=== PATIENT | female | born 1955 | race Caucasian/White ===

== ENCOUNTER 2018-02-01 05:57 | Emergency (ER) | payer SELFPAY ==
[~2018-02-01] VITALS: Ht 162.6 cm; Wt 38.6 kg
[~2018-02-01 05:57] MED LIST: HYDR-3062 PO; HYDR1TAB66 PO; LEVO500T69 PO; MELA1TAB17 PO; METH4TAB PO; NAPR-243 PO
--- OUTSIDE RECORDS SUMMARY | 2018-02-01 06:02 | XMS REPORT | Continuity of Care Document ---
Author Author [facility] Address Unknown Phone Unavailable Allergies Active Description Code Type Severity Reaction Onset Reported/Identified Relationship to Patient Clinical Status Yes No Known Drug Allergies [id number] Drug Allergy Unknown N/A 08/19/2011 Medications There is no data. 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 06/24/2011 MABEL DUNCAN APRN 716.90 UNSPECIFIED ARTHROPATHY SITE UNSPECIFIED 06/24/2011 MABEL DUNCAN APRN 783.21 LOSS OF WEIGHT 06/24/2011 MABEL DUNCAN APRN 716.90 UNSPECIFIED ARTHROPATHY SITE UNSPECIFIED 06/24/2011 MABEL DUNCAN APRN 783.21 LOSS OF WEIGHT 08/21/2011 MABEL DUNCAN APRN 486 PNEUMONIA 08/21/2011 MABEL DUNCAN APRN 486 PNEUMONIA 05/30/2013 JAZZ DO, ELLIOT K Ot 490 05/30/2013 JAZZ DO, ELLIOT K Ot 599.0 05/30/2013 JAZZ IRENE, ELLIOT K Ot 789.09 06/03/2013 MABEL DUNCAN APRN 466.0 BRONCHITIS, ACUTE 06/03/2013 MABEL DUNCAN APRN 466.0 BRONCHITIS, ACUTE 06/10/2013 MABEL DUNCAN APRN 735.0 HALLUX VALGUS (ACQUIRED) 06/10/2013 MABEL DUNCAN APRN 735.4 HAMMER TOE (ACQUIRED) Procedures Code Description Performed By Performed On PODIATRY JOSÉ MIGUEL HERRERA 06/10/2013 Results There is no data. Encounters ACCT No. Visit Date/Time Discharge Status Pt. Type Provider Facility Loc./Unit Complaint [id number] 06/10/2013 14:25:00 06/10/2013 23:59:59 CLS Outpatient MABEL DUNCAN APRN [id number] 06/03/2013 16:46:00 06/03/2013 23:59:59 CLS Outpatient MABEL DUNCAN APRN [id number] 05/30/2013 16:41:00 05/30/2013 19:05:00 DIS Emergency ELLIOT SCHULZ DO [facility]
--- NOTE | 2018-02-01 06:20 | ED Cough/URI ---
General Stated Complaint: POSS PNEUMONIA,SOB Source: patient History of Present Illness Date Seen by Provider: Feb 01, 2018 Time Seen by Provider: 06:01 Initial Comments PT ARRIVES VIA POV FROM HOME C/O PRODUCTIVE COUGH WITH WHITE TO GREEN SPUTUM SINCE Thursday01/28/18 C/O LEFT LATERAL CHEST PAIN WITH COUGHING ONLY C/O SHORTNESS OF BREATH WITH COUGHING HAS HAD SUBJECTIVE FEVER AND CHILLS NO SWELLING IN LEGS / FEET OR PAIN IN CALVES CONTINUES TO SMOKE 1-2 PPD HAS BEEN DX WITH COPD BUT DOES NOT USE INHALERS, NEBULIZERS OR HOME O2 HAS HAD PNEUMONIA IN THE PAST AND THIS FEELS THE SAME NO RELIEF WITH OTC SINUS MEDS TREATED FOR TB 20 YEARS AGO, PER OLD RECORD PCP: DR. BRAN, [facility] [place] Allergies and Home Medications Allergies Coded Allergies: No Known Drug Allergies (Unverified , 08/19/11) Home Medications Hydrocodone Bit/Acetaminophen 1 Each Tablet, 1 EACH PO QID, (Reported) Levofloxacin 500 Mg Tab, 1 EACH PO DAILY FOR INFECTION Prescribed by: ELLIOT SCHULZ on 08/20/111 Levofloxacin 500 Mg Tab, 1 EACH PO DAILY Prescribed by: ELLIOT SCHULZ on 05/30/131816 Melatonin/Pyridoxine Hcl (B6) 1 Each Tablet.er, 1 EACH PO DAILY, (Reported) Methylprednisolone 4 Mg/Dose-Pack Tab.ds.pk, 0 PO UD Prescribed by: ELLIOT SCHULZ on 08/20/11 0002 Naproxen 500 Mg Tablet, 1 EACH PO TID PRN for PAIN FOR PAIN Prescribed by: ELLIOT SCHULZ on 05/30/131816 Patient Home Medication List Home Medication List Reviewed: Yes Review of Systems Review of Systems Constitutional: see HPI, chills, fever EENTM: nose congestion Respiratory: see HPI, cough, phlegm, short of breath Cardiovascular: see HPI, chest pain; No edema, No palpitations, No syncope, No vascular heart diseas Gastrointestinal: no symptoms reported Genitourinary: no symptoms reported Musculoskeletal: joint pain, other (CHRONIC ARTHRITIS PAIN) Skin: no symptoms reported Psychiatric/Neurological: No Symptoms Reported Hematologic/Lymphatic: No Symptoms Reported Immunological/Allergic: no symptoms reported Past Ooplktk-Bxlphp-Nbkqth Hx Patient Social History Alcohol Use: Denies Use Recreational Drug Use: No Smoking Status: Current Everyday Smoker (1-2 PPD) Type Used: Cigarettes Recent Foreign Travel: No Contact w/Someone Who Travel: No Past Medical History Surgeries: Yes Tubal Ligation Respiratory: Yes (TREATED FOR TB 20 YEARS AGO--APPROXIMATELY 1997) Pneumonia, COPD, Tuberculosis Cardiac: No Neurological: No Reproductive Disorders: No Genitourinary: No Gastrointestinal: No Musculoskeletal: Yes Arthritis, Rheumatoid Arthritis Endocrine: No HEENT: No Cancer: No Psychosocial: No Integumentary: No Blood Disorders: No Physical Exam Vital Signs - First Documented 02/01/18 06:05 Temp 98.8 Pulse 80 Resp 19 B/P (MAP) 138/73 (94) Capillary Refill : Height: '" Weight: 100lbs. oz. 45.630654gx; BMI Method:Stated General Appearance: no apparent distress, cachetic, thin, other (FULL HEAVY MAKE UP, CHEWING GUM, REEKS OF CIGARETTES) HEENT: PERRL/EOMI, normal ENT inspection, TMs normal, pharynx normal, other ( POOR DENTITION) Neck: non-tender, full range of motion, supple, normal inspection Respiratory: chest non-tender, normal breath sounds, no respiratory distress, no accessory muscle use, decreased breath sounds (IN BASES) Cardiovascular: regular rate, rhythm, no edema, no JVD, no murmur Gastrointestinal: normal bowel sounds, non tender, soft Extremities: normal inspection, no pedal edema, no calf tenderness, normal capillary refill, other (SIGNIFICANT ARTHRITIC CHANGES TO HANDS/FINGERS) Neurologic/Psychiatric: grid trimmer II-XII nml as tested, no motor/sensory deficits, alert, normal mood/affect, oriented x 3 Skin: normal color, warm/dry Focused Exam Lactate Level 02/01/18 06:12: Lactic Acid Level 3.27*H 02/01/18 08:10: Lactic Acid Level Laboratory Tests Test 02/01/18 06:12 02/01/18 08:10 Lactic Acid Level 3.27 MMOL/L (0.50-2.00) *H Progress/Results/Core Measures Suspected Sepsis SIRS Temperature: Pulse: Respiratory Rate: Laboratory Tests 02/01/18 06:12: White Blood Count 10.6 Blood Pressure / Mean: 02/01/18 06:12: Lactic Acid Level 3.27*H 02/01/18 08:10: Laboratory Tests 02/01/18 06:12: Creatinine 0.68, INR Comment 1.0, Platelet Count 288, Total Bilirubin 0.5 Results/Orders Lab Results Laboratory Tests Test 02/01/18 06:12 02/01/18 06:21 02/01/18 08:10 Range/Units White Blood Count 10.6 4.3-11.0 10^3/uL Red Blood Count 4.24 L 4.35-5.85 10^6/uL Hemoglobin 13.0 11.5-16.0 G/DL Hematocrit 39 35-52 % Mean Corpuscular Volume 93 80-99 FL Mean Corpuscular Hemoglobin 31 25-34 PG Mean Corpuscular Hemoglobin Concent 33 32-36 G/DL Red Cell Distribution Width 12.6 10.0-14.5 % Platelet Count 288 130-400 10^3/uL Mean Platelet Volume 10.8 H 7.4-10.4 FL Neutrophils (%) (Auto) 78 H 42-75 % Lymphocytes (%) (Auto) 13 12-44 % Monocytes (%) (Auto) 6 0-12 % Eosinophils (%) (Auto) 2 0-10 % Basophils (%) (Auto) 1 0-10 % Neutrophils # (Auto) 8.3 H 1.8-7.8 X 10^3 Lymphocytes # (Auto) 1.4 1.0-4.0 X 10^3 Monocytes # (Auto) 0.7 0.0-1.0 X 10^3 Eosinophils # (Auto) 0.2 0.0-0.3 10^3/uL Basophils # (Auto) 0.1 0.0-0.1 10^3/uL Prothrombin Time 13.4 12.2-14.7 SEC INR Comment 1.0 0.8-1.4 Activated Partial Thromboplast Time 53 H 24-35 SEC Sodium Level 140 135-145 MMOL/L Potassium Level 3.2 L 3.6-5.0 MMOL/L Chloride Level 105 98-107 MMOL/L Carbon Dioxide Level 22 21-32 MMOL/L Anion Gap 13 5-14 MMOL/L Blood Urea Nitrogen 7 7-18 MG/DL Creatinine 0.68 0.60-1.30 MG/DL Estimat Glomerular Filtration Rate > 60 BUN/Creatinine Ratio 10 Glucose Level 183 H 70-105 MG/DL Lactic Acid Level 3.27 *H 0.50-2.00 MMOL/L Calcium Level 10.3 H 8.5-10.1 MG/DL Corrected Calcium 10.1 8.5-10.1 MG/DL Magnesium Level 1.9 1.8-2.4 MG/DL Total Bilirubin 0.5 0.1-1.0 MG/DL Aspartate Amino Transf (AST/SGOT) 24 5-34 U/L Alanine Aminotransferase (ALT/SGPT) 23 0-55 U/L Alkaline Phosphatase 128 40-136 U/L Troponin I < 0.30 <0.30 NG/ML B-Type Natriuretic Peptide 35.4 <100.0 PG/ML Total Protein 7.1 6.4-8.2 GM/DL Albumin 4.2 3.2-4.5 GM/DL Urine Color YELLOW Urine Clarity CLEAR Urine pH 7 5-9 Urine Specific Pinole 1.005 L 1.016-1.022 Urine Protein NEGATIVE NEGATIVE Urine Glucose (UA) NEGATIVE NEGATIVE Urine Ketones NEGATIVE NEGATIVE Urine Nitrite NEGATIVE NEGATIVE Urine Bilirubin NEGATIVE NEGATIVE Urine Urobilinogen NORMAL NORMAL MG/DL Urine Leukocyte Esterase NEGATIVE NEGATIVE Urine RBC (Auto) NEGATIVE NEGATIVE Urine RBC NONE /HPF Urine WBC NONE /HPF Urine Squamous Epithelial Cells NONE /HPF Urine Crystals NONE /LPF Urine Bacteria NEGATIVE /HPF Urine Casts NONE /LPF Urine Mucus NEGATIVE /LPF Urine Culture Indicated NO My Orders Orders - ELLIOT SCHULZ DO Saline Lock/Iv-Start (02/01/18 06:05) Ekg Tracing (02/01/18 06:05) O2 (02/01/18 06:05) Monitor-Rhythm Ecg Trace Only (02/01/18 06:05) BNP (02/01/18 06:05) Cbc With Automated Diff (02/01/18 06:05) Comprehensive Metabolic Panel (02/01/18 06:05) Lactic Acid Analyzer (02/01/18 06:05) Magnesium (02/01/18 06:05) Protime With Inr (02/01/18 06:05) Partial Thromboplastin Time (02/01/18 06:05) Troponin I (02/01/18 06:05) Blood Culture (02/01/18 06:05) Chest Pa/Lat (2 View) (02/01/18 06:05) Ua Culture If Indicated (02/01/18 06:54) Sputum Culture (02/01/18 06:54) Ct Chest W (02/01/18 07:02) Iohexol Injection (Omnipaque 350 Mg/Ml 1 (02/01/18 07:30) Ns (Ivpb) (Sodium Chloride 0.9%) (02/01/18 07:30) Medications Given in ED Current Medications Medications Dose Ordered Sig/Leonidas Route Start Time Stop Time Status Last Admin Dose Admin Iohexol 100 ml ONCE ONCE IV 02/01/18 07:30 02/01/18 07:31 DC 02/01/18 07:26 75 ML Sodium Chloride 250 ml ONCE ONCE IV 02/01/18 07:30 02/01/18 07:31 DC 02/01/18 07:27 80 ML Vital Signs/I&O 02/01/18 06:05 Temp 98.8 Pulse 80 Resp 19 B/P (MAP) 138/73 (94) Capillary Refill : ECG Initial ECG Impression Date: Feb 01, 2018 Initial ECG Impression Time: 06:06 Initial ECG Rate: 81 Initial ECG Rhythm: Normal Sinus Initial ECG Impression: Normal Initial ECG Comparisson: No Previous ECG Available Diagnostic Imaging Comments CXR--SMALL AIRSPACE OPACITIES IN RIGHT AND LEFT LUNG PERIPHERY--INFILTRATES VS SCARRING VS MASSES. ALSO PROGRESSION OF SUSPECTED SCARRING RIGHT LUNG APEX-- REC. CT CHEST. COPD CHANGES--PER RADIOLOGIST REPORT @ 0733 CT CHEST--BILATERAL PATCHY AREAS OF PERIPHERAL CONSOLIDATION OF BRONWYN AND RLL, CONCERNING FOR PNEUMONIA. REC 3 MONTH FOLLOW UP CHEST CT FOR RESOLUTION. COPD CHANGES WITH RUL SCARRING, REC CHEST CT FOLLOW UP . ALSO 5 MM NODULAR DENSITY RLL--REC FOLLOW UP CHEST CH WITHIN 6 MONTHS--PER RADIOLOGIST REPORT AT 0815 Reviewed: Reviewed by Me Departure Impression Primary Impression: Pneumonia Additional Impressions: COPD (chronic obstructive pulmonary disease) Lung nodule seen on imaging study Smoker Hx of tuberculosis Disposition: HOME, SELF-CARE Condition: Stable Departure-Patient Inst. Referrals: [facility] (PCP/Family) Primary Care Physician Patient Instructions: COPD Including Emphysema (DC), Pneumonia, Adult (DC), Quitting Smoking for Older Adults, SMOKING CESSATION, Single Pulmonary Nodule Add. Discharge Instructions: ROBITUSSIN DM FOR COUGH AND CONGESTION TYLENOL AND MOTRIN NEEDED FOR PAIN OR FEVER LOTS OF CLEAR LIQUIDS NO SMOKING FOLLOW UP WITH DR. BRAN/[facility] IN 3-4 DAYS FOR FURTHER CARE Scripts Benzonatate (Tessalon Perle) 100 Mg Capsule 1-2 TAB PO TID for Cough, #30 CAP Prov: ELLIOT SCHULZ DO 02/01/18 Levofloxacin (Levaquin) 500 Mg Tablet 500 MG PO DAILY for INFECTION, #10 TAB Prov: ELLIOT SCHULZ DO 02/01/18 Work/School Note: Work Release Form Date Seen in the Emergency Department: Feb 01, 2018 Restrictions: Need Release from Doctor ELLIOT SCHULZ DO Feb 01, 2018 06:20
[2018-02-01 06:32] LABS: BASOPHILS # (AUTO) 0.1 10^3/uL (0.0-0.1); BASOPHILS % (AUTO) 1 % (0-10); EOSINOPHILS # (AUTO) 0.2 10^3/uL (0.0-0.3); EOSINOPHILS % (AUTO) 2 % (0-10); HEMATOCRIT 39 % (35-52); LYMPHOCYTES # (AUTO) 1.4 X 10^3 (1.0-4.0); LYMPHOCYTES % (AUTO) 13 % (12-44); MEAN CORPUSCULAR HEMOGLOBIN 31 PG (25-34); MEAN CORPUSCULAR HGB CONC 33 G/DL (32-36); MEAN CORPUSCULAR VOLUME 93 FL (80-99); MEAN PLATELET VOLUME 10.8 FL (7.4-10.4); MONOCYTES # (AUTO) 0.7 X 10^3 (0.0-1.0); MONOCYTES % (AUTO) 6 % (0-12); NEUTROPHILS # (AUTO) 8.3 X 10^3 (1.8-7.8); NEUTROPHILS % (AUTO) 78 % (42-75); PLATELET COUNT 288 10^3/uL (130-400); RED BLOOD COUNT 4.24 10^6/uL (4.35-5.85); RED CELL DISTRIBUTION WIDTH 12.6 % (10.0-14.5); WHITE BLOOD COUNT 10.6 10^3/uL (4.3-11.0)
[2018-02-01 06:47] LABS: PROTHROMBIN TIME PATIENT 13.4 SEC (12.2-14.7)
[2018-02-01 06:53] LABS: ALANINE AMINOTRANSFERASE 23 U/L (0-55); ALBUMIN 4.2 GM/DL (3.2-4.5); ALKALINE PHOSPHATASE 128 U/L (40-136); BILIRUBIN,TOTAL 0.5 MG/DL (0.1-1.0); BUN/CREATININE RATIO 10; CALCIUM 10.3 MG/DL (8.5-10.1); CARBON DIOXIDE 22 MMOL/L (21-32); CHLORIDE 105 MMOL/L (98-107); CREATININE SERUM 0.68 MG/DL (0.60-1.30); GFR ESTIMATED > 60; GLUCOSE 183 MG/DL (70-105); MAGNESIUM 1.9 MG/DL (1.8-2.4); POTASSIUM 3.2 MMOL/L (3.6-5.0); SODIUM 140 MMOL/L (135-145); TOTAL PROTEIN 7.1 GM/DL (6.4-8.2)
[2018-02-01 07:00] LABS: BILIRUBIN,URINE NEGATIVE (NEGATIVE); CLARITY,URINE CLEAR; COLOR,URINE YELLOW; GLUCOSE, URINE (UA) NEGATIVE (NEGATIVE); KETONES,URINE NEGATIVE (NEGATIVE); LEUKOCYTE ESTERASE ,URINE NEGATIVE (NEGATIVE); NITRITE,URINE NEGATIVE (NEGATIVE); PH,URINE 7 (5-9); PROTEIN,URINE NEGATIVE (NEGATIVE); UROBILINOGEN,URINE NORMAL (NORMAL)
[2018-02-01 07:12] LABS: BACTERIA,URINE NEGATIVE /HPF
--- NOTE | 2018-02-01 07:15 | Diagnostic Imaging Report ---
CLINICAL INDICATION: Patient with cough and congestion x5 days. EXAM: Chest x-ray PA and lateral views. COMPARISON: Chest x-ray dated 08/19/2011. FINDINGS: There is interval development of a 3.5 cm area of amorphous consolidation in the lateral periphery midportion of the right lung. There is also subtle increased density involving the periphery of the left midlung field as well. Nipple shadow seen overlying both lower lung rojo. There is slight increase suspected scarring in the right lung apex which appears be pleural-based. There are slightly hyperinflated lungs, increased retrosternal clear space, and flattened hemidiaphragms which can be seen with COPD changes. Bones show no significant abnormality. Cachexia is seen. IMPRESSION: 1: There is interval development of small airspace opacities overlying the right and left lung rojo in the periphery. These may represent lung infiltrates versus scarring versus lung masses. CT scan of the chest is suggested for further evaluation. 2: There is progression of suspected scarring in the right lung apex. This also should be further evaluated on chest CT scan to exclude underlying lesion. 3: COPD lung changes. Dictated by: Dictated on workstation # [id number]
[2018-02-01] MEDS ORDERED: NS 250 ML (IVPB) BAG IV ONE (07:30)
[2018-02-01] MEDS ORDERED: IOHEXOL 350 MG/ML 100 ML (OMNIPAQUE 350) VIAL IV ONE (07:30)
--- NOTE | 2018-02-01 07:49 | Diagnostic Imaging Report ---
Clinical indication: Patient with cough and congestion x5 days. Exam: CT scan of the chest performed with 75 cc of Omnipaque 350 IV contrast. Coronal and sagittal reformatted images are created. Comparison: Chest x-ray dated 02/01/2018. Findings: Diffuse emphysematous lung disease is seen. There is patchy areas of airspace consolidation involving the posterior periphery of the left upper lobe and a slightly larger small area of peripheral consolidation involving the lateral aspect of the right lower lobe. These areas of consolidation correlate to the areas of abnormality seen on the chest x-ray. These areas are concerning for infectious or inflammatory process. There are parenchymal bands and patchy areas of consolidation involving the right lung apex which extends to the pleura which may be related to scarring. There is no definitive measurable mass seen in the right lung apex. Bulla are noted in the right lung apex. There is minimal patchy areas of atelectasis or scar in both lung bases. There is a small area of nodularity measuring 5 mm in the right lower lobe seen on series 2, image 38. There is minimal atelectasis or scarring involving the right middle lobe. There is no pneumothorax or pleural effusion. There is no significant axillary or mediastinal lymphadenopathy. Visualized pulmonary vasculature and mediastinal structures show no significant abnormality. The thoracic aorta shows mild atherosclerotic changes, but otherwise unremarkable. There is a 6 mm nodular area involving left thyroid gland. Bones show no acute abnormality. Cachexia is noted. IMPRESSION: 1: There is bilateral patchy areas of peripheral consolidation involving left upper lobe and right lower lobe. These areas correlate to the areas of consolidation of concern on the prior chest x-ray. These findings are concerning for pneumonia, but these areas should continue to be followed for resolution. Followup chest CT scan in 3 months is suggested to evaluate for resolution of these findings. 2: COPD lung changes with suspected right lung apex scarring. Comparison to prior chest CT scans is suggested to evaluate for stability. Otherwise this area should be followed on subsequent CT scan for stability given its asymmetry compared to the left side. 3: There is a 5 mm nodular area involving the right lower lobe which should also be followed up within 6 months to evaluate for stability. 4. There is no lymphadenopathy seen on this exam. Dictated by: Dictated on workstation # [id number]
[2018-02-01] MEDS ORDERED: KETOROLAC 30 MG/ML VIAL IVP STA (08:17)
[2018-02-01] MEDS ORDERED: BENZ100C18 PO (08:25)
[2018-02-01] MEDS ORDERED: LEVO500T2 PO (08:25)
[2018-02-01] MEDS ORDERED: cefTRIAXone FOR IV USE 1,000 MG in NS (IVPB) 50 ML IV ONE (08:30)
[2018-02-01 09:02] VITALS: BP 112/67
== END 2018-02-01 09:02 | disposition home or self-care (01) ==
LOC: EDUNIT# 05:57 → ER 05:59
DX: J18.9 Pneumonia, unspecified organism (principal); J44.9 Chronic obstructive pulmonary disease, unspecified; R91.1 Solitary pulmonary nodule; M06.9 Rheumatoid arthritis, unspecified; F17.210 Nicotine dependence, cigarettes, uncomplicated; Z86.11 Personal history of tuberculosis; Z79.52 Long term (current) use of systemic steroids; Z98.51 Tubal ligation status
CPT/HCPCS: 36415; 71046; 71260; 80053; 81000; 83605; 83735; 83880; 84484; 85025; 85610; 85730; 87040; 87070; 87205; 93005; 93041; 96365; 96375

== ENCOUNTER → 2020-02-15 | Outpatient (CLI) | payer OTHER ==
[~2020-02-15] VITALS: Ht 152 cm; Wt 43.1 kg
[~2020-02-15] MED LIST changes: +BENZ100C18 PO; +IBUP-2473 PO; +LEVO500T2 PO
== END | disposition home or self-care (01) ==
LOC: PREOP 05:46
PROVIDERS: ATTEND Specialist
DX: Z01.818 Encounter for other preprocedural examination (principal)

== ENCOUNTER 2020-02-17 08:51 | Day surgery (SDC) | payer OTHER ==
[~2020-02-17] VITALS: Ht 152 cm; Wt 43.1 kg
[2020-02-17] MEDS ORDERED: LIDOCAINE PF 1% 2 ML VIAL IR PRN (09:00)
[2020-02-17] MEDS ORDERED: TIMOLOL MALEATE 0.5% 5 ML (TIMOPTIC) BTL OU PRN (09:00)
[2020-02-17] MEDS ORDERED: MOXIFLOXACIN OPHTH SOLN 5 MG/ML 0.3 ML SYRINGE OP ONE (09:00)
[2020-02-17] MEDS ORDERED: POVIDONE (BETADINE) OPHTH SOLN 5% 30 ML OP ONE (09:00)
[2020-02-17] MEDS ORDERED: MIDAZOLAM 2 MG/2 ML (VERSED) VIAL ONE (09:01)
[2020-02-17] MEDS: TETRACAINE 0.5% OPHTH SOLN 4 ML BTL (SINGLE DOSE ONLY) OU PRN ×4 (09:06→09:23)
[2020-02-17] MEDS: PHENYLEPHRINE 10% OPHTH (NEO-SYN) 5 ML BTL OU SCH ×3 (09:13→09:23)
[2020-02-17] MEDS: CYCLOPENTOLATE 1% (CYCLOGYL) 2 ML DROPS OP SCH ×3 (09:13→09:23)
[2020-02-17 09:14] VITALS: BP 128/69
--- NOTE | 2020-02-17 09:16 | Ophthalmologist Pre-Op Note ---
Pre-Operative Progress Note H&P Reviewed The H&P was reviewed, patient examined and no changes noted. Date H&P Reviewed: Feb 17, 2020 Time H&P Reviewed: 09:16 Pre-Op Dx Cataract, Left Eye DORIS TAYLOR MD Feb 17, 2020 09:16
--- NOTE | 2020-02-17 09:45 | Ophthalmology Operative Report ---
Cataract removal/placement IOL PREOPERATIVE DIAGNOSIS: Cataract Left Eye POSTOPERATIVE DIAGNOSIS: Cataract Left Eye PROCEDURE: Cataract removal and placement of posterior chamber implant, left eye SURGEON: Myron Taylor ANESTHESIA: Topical with sedation COMPLICATIONS: None ESTIMATED BLOOD LOSS: Minimal DESCRIPTION OF PROCEDURE: After proper informed consent was obtained, the patient, a 65 female, was taken to the Operating Room and the left eye was anesthetized with tetracaine. The left eye was then prepped and draped in the usual manner. A wire lid speculum was placed. A paracentesis was made at the left hand position. Preservative free lidocaine was injected into the anterior chamber followed by viscoelastic. A clear corneal incision was made in the temporal position. A capsulorrhexis was preformed and the central nuclear and cortical material were removed. The posterior capsule was polished and an Luisito 10.0 AU00T0 was placed into the capsular bag. The residual viscoelastic was aspirated and balanced saline solution was injected into the anterior chamber. Moxifloxacin was injected into the anterior chamber. The wound was checked and found to be water tight. The patient tolerated the procedure well without complications. MYRON TAYLOR MD Feb 17, 2020 09:45
[2020-02-17 09:55] VITALS: BP 143/73
[2020-02-17] MEDS ORDERED: acetaZOLAMIDE ER 500 MG CAP (DIAMOX SEQUELS) PO ONE (10:00)
--- NOTE | 2020-02-22 12:36 | Anesthesia-General Post-Op ---
MAC Patient Condition Mental Status/LOC: Same as Preop Cardiovascular: Satisfactory Nausea/Vomiting: Absent Respiratory: Satisfactory Pain: Controlled Complications: Absent Post Op Complications Complications None Follow Up Care/Instructions Patient Instructions None needed. Anesthesiology Discharge Order Discharge Order Post-dated progress note: Patient was seen on 02-17-20 at 0950 and she was doing well, no complaints, stable vital signs, no apparent adverse anesthesia problems. INDIRA MARIE DO Feb 22, 2020 12:36
== END 2020-02-17 09:55 | disposition home or self-care (01) ==
LOC: SDC 08:51
PROVIDERS: ATTEND Specialist
DX: H25.12 Age-related nuclear cataract, left eye (principal); M06.9 Rheumatoid arthritis, unspecified; F17.210 Nicotine dependence, cigarettes, uncomplicated
CPT/HCPCS: 66984; V2632

== ENCOUNTER 2020-03-06 05:44 | Outpatient (CLI) | payer OTHER ==
[~2020-03-06] VITALS: Ht 154.9 cm; Wt 43.2 kg
== END 2020-03-06 10:40 ==
LOC: PREOP 05:44
PROVIDERS: ATTEND Specialist
DX: Z01.818 Encounter for other preprocedural examination (principal)

== ENCOUNTER 2020-03-09 08:29 | Day surgery (SDC) | payer OTHER ==
[~2020-03-09] VITALS: Ht 154.9 cm; Wt 43.2 kg
[2020-03-09 08:38] VITALS: BP 148/66
[2020-03-09] MEDS ORDERED: MOXIFLOXACIN OPHTH SOLN 5 MG/ML 0.3 ML SYRINGE OP ONE (08:45)
[2020-03-09] MEDS ORDERED: TIMOLOL MALEATE 0.5% 5 ML (TIMOPTIC) BTL OU PRN (08:45)
[2020-03-09] MEDS ORDERED: POVIDONE (BETADINE) OPHTH SOLN 5% 30 ML OP ONE (08:45)
[2020-03-09] MEDS ORDERED: LIDOCAINE PF 1% 2 ML VIAL IR PRN (08:45)
[2020-03-09] MEDS: TETRACAINE 0.5% OPHTH SOLN 4 ML BTL (SINGLE DOSE ONLY) OU PRN ×4 (08:51→09:07)
[2020-03-09] MEDS: TROPICAMIDE 1% OPH SOLN (MYDRIACYL) 15 ML BTL OP SCH ×3 (08:57→09:07)
[2020-03-09] MEDS: PHENYLEPHRINE 10% OPHTH (NEO-SYN) 5 ML BTL OU SCH ×3 (08:57→09:07)
[2020-03-09] MEDS ORDERED: MIDAZOLAM 2 MG/2 ML (VERSED) VIAL ONE (08:58)
--- NOTE | 2020-03-09 09:15 | Ophthalmologist Pre-Op Note ---
Pre-Operative Progress Note H&P Reviewed The H&P was reviewed, patient examined and no changes noted. Date H&P Reviewed: Mar 09, 2020 Time H&P Reviewed: 09:15 Pre-Op Dx Cataract, Right Eye DORIS TAYLOR MD Mar 09, 2020 09:15
--- NOTE | 2020-03-09 09:37 | Ophthalmology Operative Report ---
Cataract removal/placement IOL PREOPERATIVE DIAGNOSIS: Cataract Right Eye POSTOPERATIVE DIAGNOSIS: Cataract Right Eye PROCEDURE: Cataract removal and placement of posterior chamber implant, right eye SURGEON: Myron Taylor ANESTHESIA: Topical with sedation COMPLICATIONS: None ESTIMATED BLOOD LOSS: Minimal DESCRIPTION OF PROCEDURE: After proper informed consent was obtained, the patient, a 65 female, was taken to the Operating Room and the right eye was anesthetized with tetracaine. The right eye was then prepped and draped in the usual manner. A wire lid speculum was placed. A paracentesis was made at the left hand position. Preservative free lidocaine was injected into the anterior chamber followed by viscoelastic. A clear corneal incision was made in the temporal position. A capsulorrhexis was preformed and the central nuclear and cortical material were removed. The posterior capsule was polished and Luisito 10.5 AU00T0 IOL was placed into the capsular bag. The residual viscoelastic was aspirated and balanced saline solution was injected into the anterior chamber. Moxifloxacin was injected into the anterior chamber. The wound was checked and found to be water tight. The patient tolerated the procedure well without complications. MYRON TAYLOR MD Mar 09, 2020 09:37
[2020-03-09 09:40] VITALS: BP 112/70
[2020-03-09] MEDS ORDERED: acetaZOLAMIDE ER 500 MG CAP (DIAMOX SEQUELS) PO ONE (10:00)
--- NOTE | 2020-03-09 13:56 | Anesthesia-General Post-Op ---
MAC Patient Condition Mental Status/LOC: Same as Preop Cardiovascular: Satisfactory Nausea/Vomiting: Absent Respiratory: Satisfactory Pain: Controlled Complications: Absent Post Op Complications Complications None Follow Up Care/Instructions Patient Instructions None needed. Anesthesiology Discharge Order Discharge Order Patient is doing well, no complaints, stable vital signs, no apparent adverse anesthesia problems. No complications reported per nursing. HARISH GARLAND CRNA Mar 09, 2020 13:56
== END 2020-03-09 09:45 ==
LOC: SDC 08:29
PROVIDERS: ATTEND Specialist
DX: H25.11 Age-related nuclear cataract, right eye (principal); M06.9 Rheumatoid arthritis, unspecified; F17.210 Nicotine dependence, cigarettes, uncomplicated; Z79.899 Other long term (current) drug therapy; Z80.0 Family history of malignant neoplasm of digestive organs
CPT/HCPCS: 66984; V2632

== ENCOUNTER → 2021-12-02 | Outpatient (CLI) | payer MEDICARE ==
--- NOTE | 2021-12-03 12:34 | Diagnostic Imaging Report ---
Indication: Routine screening. No prior mammograms are available for comparison. 2-D and 3-D bilateral screening mammography was performed with CAD. CAD is utilized. The current study was also evaluated with a Computer Aided Detection (CAD) system. Both breasts are heterogeneously dense, limiting the sensitivity of mammography. There are benign calcifications bilaterally. There is a focal density in the superior left breast best seen on the MLO view. This appears to be laterally located on the tomographic images. Additional views are recommended. No other masses are seen. No malignant-appearing microcalcifications are identified. Axillae are unremarkable. IMPRESSION: BI-RADS 0 Left breast density. Additional views are recommended for further evaluation. ACR BI-RADS Category 0: Incomplete. (Needs additional imaging evaluation). Result letter will be mailed to the patient. Note: At least 10% of breast cancer is not imaged by mammography. Dictated by: Dictated on workstation # [id number]
== END ==
LOC: RAD 14:30
PROVIDERS: ATTEND Nurse Practitioner
DX: Z12.31 Encounter for screening mammogram for malignant neoplasm of breast (principal)
CPT/HCPCS: 77063; 77067

== ENCOUNTER → 2021-12-20 | Outpatient (CLI) | payer MEDICARE ==
--- NOTE | 2021-12-20 14:08 | Diagnostic Imaging Report ---
Indication: Left breast density. Patient presents for additional views. Correlation is made with screening study from 12/02/2021. Unilateral left 2-D and 3-D diagnostic mammography was performed. This included spot compression MLO, conventional 90 degree lateral view as well as an exaggerated CC view. Additional view fail to demonstrate a discrete mass. The density noted on screening study most likely represented superimposed tissue. No mass or malignant-appearing microcalcifications are seen. IMPRESSION: BI-RADS Category 1 Additional views fail to demonstrate a discrete mass. The density most likely represent superimposed tissue. The patient may return to routine annual screening mammography. ACR BI-RADS Category 1: Negative. Result letter will be mailed to the patient. Note: At least 10% of breast cancer is not imaged by mammography. Dictated by: Dictated on workstation # [id number]
== END ==
LOC: RAD 13:09
PROVIDERS: ATTEND Nurse Practitioner
DX: R92.2 Inconclusive mammogram (principal)
CPT/HCPCS: 77065; G0279

== ENCOUNTER 2022-01-15 05:34 | Outpatient (CLI) | payer MEDICARE ==
[~2022-01-15] VITALS: Ht 162.6 cm; Wt 43.5 kg
== END 2022-01-15 11:50 | disposition home or self-care (01) ==
LOC: PREOP 05:34
PROVIDERS: ATTEND Surgery
DX: Z01.818 Encounter for other preprocedural examination (principal)

== ENCOUNTER 2022-01-23 10:37 | Day surgery (SDC) | payer MEDICARE ==
[2022-01-23] VITALS (7 sets, daily range): BP systolic 120–134; BP diastolic 60–69
[~2022-01-23] VITALS: Ht 162.6 cm; Wt 43.5 kg
[2022-01-23] MEDS ORDERED: LACTATED RINGERS 1,000 ML IV STA (10:49)
[2022-01-23] MEDS ORDERED: PROPOFOL INJECTION 50 ML IV ONE (11:16)
--- NOTE | 2022-01-23 11:34 | Progress Note-Pre Operative ---
Pre-Operative Progress Note Date of Available H&P: Jan 08, 2022 Date H&P Reviewed: Jan 23, 2022 Time H&P Reviewed: 11:34 History & Physical: H&P Reviewed, Patient Examed, No changes noted Pre-Operative Diagnosis: occult + stool, family hx colon cancer KAREN JUAN DO Jan 23, 2022 11:34
[2022-01-23] MEDS ORDERED: proPOfol 200 MG/20 ML (DIPRIVAN) VIAL IV ONE (12:27)
--- NOTE | 2022-01-23 13:13 | Anesthesia-General Post-Op ---
MAC Patient Condition Mental Status/LOC: Same as Preop Cardiovascular: Satisfactory Nausea/Vomiting: Absent Respiratory: Satisfactory Pain: Controlled Complications: Absent Post Op Complications Complications None Follow Up Care/Instructions Patient Instructions None needed. Anesthesiology Discharge Order Discharge Order Patient is doing well, no complaints, stable vital signs, no apparent adverse anesthesia problems. No complications reported per nursing. INDIRA MARIE DO Jan 23, 2022 13:13
--- NOTE | 2022-01-23 13:30 | Discharge Inst-Simple/Standard ---
Discharge Inst-Standard Patient Instructions/Follow Up Plan of Care/Instructions/FU: 2 weeks Perry Activity as Tolerated: Yes Discharge Diet: Regular Diet (high fiber) KAREN JUAN DO Jan 23, 2022 13:30
--- NOTE | 2022-01-23 18:58 | OPERATIVE REPORT ---
DATE OF SERVICE: 01/23/2022 PREOPERATIVE DIAGNOSES: Occult positive stool, family history of colon cancer. POSTOPERATIVE DIAGNOSES: Diverticulosis, colon polyps. PROCEDURE: Colonoscopy with hot biopsy polypectomy x2 and snare polypectomy x1 with Rin inking. SURGEON: Karen Amador DO ANESTHESIA: Per MDA. ESTIMATED BLOOD LOSS: None. COMPLICATIONS: None. INDICATIONS: The patient is a 67-year-old female with recent occult positive stool. She also has family history of colon cancer needing colonoscopy. She understands risks and benefits of procedure and wished to proceed. Consent was signed in the chart. DESCRIPTION OF PROCEDURE: The patient was taken to the endoscopy suite, placed in left lateral recumbent position. Timeout was performed. A digital rectal exam was performed. No palpable polyps, masses or ulcerations. Scope was inserted in the rectum, advanced all the way to cecum with minimal difficulty. Scope was then slowly retracted back. Prep was adequate with irrigation and suction. No polyps, masses or ulcerations within the cecum. In the ascending colon, there was a flat polyp, which hot biopsy polypectomy was performed. Scope was then continuously retracted back. No polyps, masses or ulcerations within the ascending, transverse and descending colon. Did note sigmoid diverticulosis. At sigmoid, there was another small polyp, which hot biopsy polypectomy was performed. Scope was then continuously retracted back. At the rectosigmoid junction, there was a large pedunculated polyp present with small polyp next to it, which snare polypectomy was performed and hot biopsy polypectomy was performed at this area. This was placed in a [employer] and removed. Scope was then reinserted to the area and Rin ink tattoo was performed. A total of 3 mL was used, 1 mL in three locations just distal to the area of the resection of the large polyp. Scope was then slowly retracted back until completely removed, noting no other pathology. The patient tolerated the procedure well without any complications. She was taken to recovery room in stable condition. RECOMMENDATIONS: The patient will follow up on biopsy results. We will need at least a flexible sigmoidoscopy in 3 to 6 months depending on pathology to make sure this area has been eradicated. We will need repeat colonoscopy in five years due to family history. Job ID: [id number] DocumentID: [id number] Dictated Date: 01/23/2022 13:24:55 Electric Container Tester Date: 01/23/2022 18:57:32 Dictated By: KAREN AMADOR DO
== END 2022-01-23 13:55 | disposition home or self-care (01) ==
LOC: ENDO 10:37
PROVIDERS: ATTEND Surgery
DX: D12.0 Benign neoplasm of cecum (principal); D12.8 Benign neoplasm of rectum; K63.5 Polyp of colon; K57.30 Diverticulosis of large intestine without perforation or abscess without bleeding; F17.210 Nicotine dependence, cigarettes, uncomplicated; Z80.0 Family history of malignant neoplasm of digestive organs
CPT/HCPCS: 88305

== ENCOUNTER 2022-09-03 05:34 | Outpatient (CLI) | payer MEDICARE ==
[~2022-09-03] VITALS: Ht 162.6 cm; Wt 45.4 kg
[2022-09-04] MEDS ORDERED: MULT120T PO (10:06)
[2022-09-04] MEDS ORDERED: NAPR-915 PO (10:06)
[2022-09-04] MEDS ORDERED: ERGO50CA PO (10:06)
[2022-09-04] MEDS ORDERED: ALEN70TA85 PO (10:06)
[2022-09-04] MEDS ORDERED: ACET325T38 PO (10:06)
== END 2022-09-04 10:09 | disposition home or self-care (01) ==
LOC: PREOP 05:34
PROVIDERS: ATTEND Surgery
DX: Z01.818 Encounter for other preprocedural examination (principal)

== ENCOUNTER 2022-09-16 09:06 | Day surgery (SDC) | payer MEDICARE ==
[2022-09-16] VITALS (7 sets, daily range): BP systolic 95–136; BP diastolic 52–62
[~2022-09-16] VITALS: Ht 162.6 cm; Wt 45.4 kg
[~2022-09-16 09:06] MED LIST changes: +ACET325T38 PO; +ALEN70TA85 PO; +ERGO50CA PO; +MULT120T PO; +NAPR-915 PO
[2022-09-16] MEDS ORDERED: LACTATED RINGERS 1,000 ML IV ONE (14:23)
--- NOTE | 2022-09-16 14:46 | Anesthesia-General Post-Op ---
MAC Patient Condition Mental Status/LOC: Same as Preop Cardiovascular: Satisfactory Nausea/Vomiting: Absent Respiratory: Satisfactory Pain: Controlled Complications: Absent Post Op Complications Complications None Follow Up Care/Instructions Patient Instructions None needed. Anesthesiology Discharge Order Discharge Order Patient is doing well, no complaints, stable vital signs, no apparent adverse anesthesia problems. No complications reported per nursing. AMANUEL KERR CRNA September 16, 2022 14:46
--- NOTE | 2022-09-16 15:38 | OPERATIVE REPORT ---
DATE OF SERVICE: 09/16/2022 PREOPERATIVE DIAGNOSIS: History of polyps. POSTOPERATIVE DIAGNOSES: Diverticulosis, sigmoid colon polyp. PROCEDURE: Colonoscopy with hot biopsy polypectomy x1. SURGEON: Karen Amador DO ANESTHESIA: Per PAPER SALES REPRESENTATIVE. ESTIMATED BLOOD LOSS: None. COMPLICATIONS: None. INDICATIONS: The patient is a 67-year-old female with history of polyps. She understands risks and benefits of procedure and wished to proceed. Consent was signed in chart. DESCRIPTION OF PROCEDURE: The patient was taken to endoscopy suite, placed in left lateral recumbent position. Timeout was performed. Digital rectal exam was performed. No palpable polyps, masses or ulcerations. Scope was inserted in the rectum, advanced all the way to the cecum with minimal difficulty. Prep was adequate. Scope was slowly retracted back. No polyps, masses or ulcerations in the cecum, ascending, transverse and descending colon. In the sigmoid colon, she had some diverticulosis present. Also, a small flat polyp was present, which hot biopsy polypectomy was performed. Scope was then continuously retracted back in the rectum, also noted the Rin inking. No evidence of any recurrence of the large polyp. Scope was retroflexed noting no other pathology. Scope was returned to its normal position, slowly withdrawn until completely removed. The patient tolerated the procedure well without any complications, taken to recovery room in stable condition. RECOMMENDATIONS: The patient will need repeat colonoscopy in 5 years. Any issues before that, be seen at that time. She will follow up on pathology in 2 weeks. Job ID: [id number] DocumentID: [id number] Dictated Date: 09/16/2022 10:36:20 Plant Taxonomy Teacher Date: 09/16/2022 15:36:00 Dictated By: KAREN AMADOR DO
[2022-09-17] MEDS ORDERED: LACTATED RINGERS 1,000 ML IV STA (13:10)
== END 2022-09-16 11:23 | disposition home or self-care (01) ==
LOC: ENDO 09:06
PROVIDERS: ATTEND Surgery
DX: Z12.11 Encounter for screening for malignant neoplasm of colon (principal); K63.5 Polyp of colon; K57.30 Diverticulosis of large intestine without perforation or abscess without bleeding; F17.210 Nicotine dependence, cigarettes, uncomplicated